=== PATIENT | female | born 1965 | race Two or more races ===

== ENCOUNTER 2021-12-08 15:19 | Emergency (ER) | payer MEDICAID, OTHER ==
[~2021-12-08] VITALS: Ht 167.6 cm; Wt 57.6 kg
[2021-12-08] MEDS ORDERED: KETOROLAC TROMETH 30 MG/ML 1ML VIAL IM ONE (15:45)
[2021-12-08 17:00] VITALS: BP 125/47
== END 2021-12-08 17:03 | disposition home or self-care (01) ==
LOC: ER 15:19
DX: R07.89 Other chest pain (principal); M54.9 Dorsalgia, unspecified; F17.210 Nicotine dependence, cigarettes, uncomplicated; Z88.0 Allergy status to penicillin
CPT/HCPCS: 96372; 99283; J1885; 93005